=== PATIENT | female | born 1985 | race Caucasian/White ===

== ENCOUNTER 2022-08-28 20:59 | Observation (INO) | payer OTHER, SELFPAY ==
[2022-08-28 20:00] VITALS: BP 158/96; PULSE 77; RESP 18; TEMP 36.8; O2SAT 97; BMI 28.1
[2022-08-28 20:45] VITALS: BMI 28.1
[2022-08-28 20:57] LABS: Microscopic, Urine URINE MICROSCOPIC (MICROSCOPIC)
[2022-08-28 20:58] LABS: Appearance,Urine CLEAR (Clear); Bilirubin,Urine Negative (Negative); Blood, Urine Negative (Negative); Color,Urine YELLOW (Yellow); Glucose,Urine (UA) Negative (Negative); Ketones,Urine Negative (Negative); Leukocyte Esterase,Urine Negative (Negative); Nitrate,Urine Negative (Negative); Protein,Urine TRACE (Negative); Urobilinogen,Urine 0.2 EU/dl (0.2)
[2022-08-28 21:10] LABS: Barbiturates Screen,Urine Negative ng/ml (<200)
[2022-08-28 21:11] LABS: Benzodiazepines Screen,Urine Negative ng/ml (<200)
[2022-08-28 21:12] LABS: Cannabinoid Screen,Urine Negative ng/ml (<50)
[2022-08-28 21:13] LABS: Bacteria,Urine 2+ /lpf; Cocaine Screen,Urine Negative ng/ml (<300); Methadone Screen,Urine Negative ng/ml (<300); WBC,Urine Occasional #/hpf (0-3)
[2022-08-28 21:14] LABS: Opiate Screen,Urine Negative ng/ml (<300)
[2022-08-28 21:15] LABS: Phencyclidine Screen,Urine Negative ng/ml (<25)
[2022-08-28 21:28] LABS: Basophils % 0.2 % (0.1-2.0); Eosinophils # 0.3 K/mm3 (0.0-0.4); Eosinophils % 4.3 % (0.1-12.0); Hematocrit 32.7 % (37.0-47.0); Lymphocytes # 1.5 K/mm3 (0.7-4.5); Lymphocytes % 23.2 % (10-50); Mean Corpuscular HGB Conc 33.7 g/dL (31.8-35.4); Mean Corpuscular Hemoglobin 29.2 pg (27.0-31.2); Mean Corpuscular Volume 86.7 fl (81-99); Mean Platelet Volume 10.5 fl (7.4-10.4); Monocytes # 0.3 K/mm3 (0.1-1.0); Monocytes % 4.6 % (1.7-9.3); Neutrophils # 4.5 K/mm3 (1.8-7.8); Neutrophils % 67.6 % (37.0-80.0); Platelet Count 180 K/mm3 (142-424); Red Blood Count 3.77 M/mm3 (4.20-5.40); Red Cell Distribution Width 13.7 % (11.5-17.5); White Blood Count 6.6 K/mm3 (4.8-10.8)
[2022-08-28 21:34] LABS: Alanine Aminotransferase 18 U/L (12-78); Aspartate Amino Transferase 25 U/L (14-36); Blood Urea Nitrogen 7 mg/dl (7-17); Carbon Dioxide 22 mmol/L (22.0-30.0); Chloride 106 mmol/L (98-107); Creatinine Clearance Estimated 127 mL/min (50-200); Estimated Glomerular Filt Rate 82 ml/min (>60); GFR (African American) 99 ML/MIN (>60); Glucose 101 mg/dl (74-100); Sodium 137 mmol/L (136-145); Uric Acid 7.7 mg/dl (2.5-6.2)
[2022-08-28 21:41] LABS: D-Dimer 0.93 ug/mL (0.0-0.5)
[2022-08-28 21:53] LABS: Amphetamine/Metha Screen,Urine Positive ng/ml (<1000)
[2022-08-28 22:02] LABS: Activated Partial Thrombo Time 24.7 seconds (22.8-30.6); Fibrinogen 479 mg/dL (229.9-363.5); INR 0.85 (0.9-1.1); Prothrombin Time 9.3 seconds (10.1-12.5)
[2022-08-29 07:16] LABS: Basophils % 0.2 % (0.1-2.0); Eosinophils % 0.4 % (0.1-12.0); Hematocrit 32.8 % (37.0-47.0); Hemoglobin 10.9 g/dL (12.2-16.2); Lymphocytes # 0.7 K/mm3 (0.7-4.5); Lymphocytes % 18.4 % (10-50); Mean Corpuscular HGB Conc 33.1 g/dL (31.8-35.4); Mean Corpuscular Hemoglobin 29.6 pg (27.0-31.2); Mean Corpuscular Volume 89.6 fl (81-99); Mean Platelet Volume 11.3 fl (7.4-10.4); Monocytes # 0.1 K/mm3 (0.1-1.0); Monocytes % 2.2 % (1.7-9.3); Neutrophils # 3.2 K/mm3 (1.8-7.8); Neutrophils % 78.8 % (37.0-80.0); Platelet Count 176 K/mm3 (142-424); Red Blood Count 3.66 M/mm3 (4.20-5.40); Red Cell Distribution Width 13.7 % (11.5-17.5)
[2022-08-29 07:22] LABS: Activated Partial Thrombo Time 24.7 seconds (22.8-30.6); Fibrinogen 436 mg/dL (229.9-363.5); INR 0.85 (0.9-1.1); Prothrombin Time 9.3 seconds (10.1-12.5)
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
[2022-08-29 08:37] LABS: D-Dimer 0.92 ug/mL (0.0-0.5)
[2022-08-29 09:27] LABS: Chloride 104 mmol/L (98-107); Sodium 135 mmol/L (136-145)
[2022-08-29 09:28] LABS: Potassium 3.4 mmoL/L (3.5-5.1)
[2022-08-29 09:30] LABS: Alanine Aminotransferase 19 U/L (12-78); Aspartate Amino Transferase 23 U/L (14-36); Blood Urea Nitrogen 8 mg/dl (7-17); Creatinine Clearance Estimated 145 mL/min (50-200); Estimated Glomerular Filt Rate 95 ml/min (>60); GFR (African American) 115 ML/MIN (>60)
[2022-08-29 09:31] LABS: Anion Gap 11.4 mEq/L (5-15); Calcium 8.3 mg/dl (8.4-10.2); Carbon Dioxide 23 mmol/L (22.0-30.0); Glucose 142 mg/dl (74-100)
[2022-08-29 09:51] LABS: Uric Acid 6.5 mg/dl (2.5-6.2)
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
--- NOTE | 2022-08-29 13:00 | SW/DCPLANNER ---
I did call and speak with OB staff ([facility]) regarding if patient should have a referral: no referral entered due to patient transferring to [facility].
--- NOTE | 2022-08-29 13:13 | PC.NURSE ---
Home Medications No Known Home Medications 08/29/22 [History Confirmed 08/29/22] Active Medications Betamethasone Acet/Betameth SodPhos (Betamethasone Acet/Phos 6mg/Ml 5ml Mdv) 12 mg IM ONCE CINTHYA Stop: 09/28/22 22:29 Last Admin: 08/28/2022 23:04 Dose: 12mg Labetalol HCl (Labetalol 100mg Tablet) 200 mg PO BID CINTHYA Stop: 09/27/22 22:29 Last Admin: 08/29/22 10:55 Dose: 200 mg
[2022-08-30 05:57] LABS: Hepatitis B Surface Antigen Negative (Negative)
[2022-08-30 08:19] LABS: HIV Screen 4th Generation wRfx Non Reactive (Non Reactive)
[2022-08-30 12:00] LABS: Rapid Plasma Reagin Ab Titer Non Reactive (NonRea<1:1)
== END 2022-08-29 14:30 | disposition short-term general hospital (02) ==
LOC: OBOUT 21:00 → OB 21:00
PROVIDERS: Admitting Provider Nurse Practitioner Obstetrics & Gynecology; Visit Provider Nurse Practitioner Obstetrics & Gynecology
DX: O9A.312 Physical abuse complicating pregnancy, second trimester (principal); O41.00X0 Oligohydramnios, unspecified trimester, not applicable or unspecified; M32.9 Systemic lupus erythematosus, unspecified; O36.5990 Maternal care for other known or suspected poor fetal growth, unspecified trimester, not applicable or unspecified; Q05.7 Lumbar spina bifida without hydrocephalus; Y09 Assault by unspecified means; Z3A.27 27 weeks gestation of pregnancy; Y07.030 Male partner, current, perpetrator of maltreatment and neglect
CPT/HCPCS: 36415; 59025; 76811; 76819; 76820; 80048; 80305; 81001; 84450; 84460; 84550; 85025; 85378; 85384; 85610; 85730; 86593; 86762; 86850; 87086; 87340; 96360; G0378

== ENCOUNTER 2024-03-14 05:10 | Emergency (ER) | payer OTHER, SELFPAY ==
[2024-03-14] VITALS (8 sets, daily range): BP systolic 118–152; BP diastolic 70–93; PULSE 94–107; RESP 20–22; TEMP 36.7–36.9; O2SAT 96–100; BMI 37.2
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
--- NOTE | 2024-03-14 04:59 | CT_ITS ---
PROCEDURE INFORMATION: Exam: CT Cervical Spine Without Contrast Exam date and time: 03/14/2024 5:25 AM Age: 38 years old Clinical indication: Injury or trauma; Additional info: Trauma, critical injury suspected TECHNIQUE: Imaging protocol: Computed tomography of the cervical spine without contrast. Radiation optimization: All CT scans at this facility use at least one of these dose optimization techniques: automated exposure control; mA and/or kV adjustment per patient size (includes targeted exams where dose is matched to clinical indication); or iterative reconstruction. COMPARISON: CT HEAD/BRAIN WO CON 03/14/2024 5:25 AM FINDINGS: Limitations: Patient motion artifacts degrade multiple images of this examination. These artifacts can cause image blurring and limit interpretation. Bones: Cervical spine is visualized from occiput to T1. Reversal of cervical spine lordotic curvature may be positional, secondary to motion, or due to pain/muscle spasm. No acute fracture as visualized. Normal alignment. Vertebral body and disc heights well preserved. No spinal stenosis or neuroforaminal stenosis visualized. Prevertebral and retropharyngeal spaces: No prevertebral edema. Trachea: Airway unremarkable. Lungs: Upper lungs unremarkable. Pleural spaces: No apical pneumothorax. Vasculature: Cervical vasculature unremarkable. Soft tissues: Neck soft tissues unremarkable. IMPRESSION: No acute cervical spine fracture visualized.
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
[2024-03-14] MEDS: ACETAMINOPHEN 500MG TAB 1000 MG PO (05:22)
[2024-03-14] MEDS: LACTATED RINGERS 1000ML 1,000 ML 999 ML IV (05:22)
[2024-03-14 05:23] LABS: Basophils % 0.4 % (0.1-2.0); Eosinophils # 0.2 K/mm3 (0.0-0.4); Eosinophils % 3.9 % (0.1-12.0); Hematocrit 28.2 % (37.0-47.0); Hemoglobin 9.2 g/dL (12.2-16.2); Lymphocytes # 1.2 K/mm3 (0.7-4.5); Lymphocytes % 22.9 % (10-50); Mean Corpuscular HGB Conc 32.6 g/dL (31.8-35.4); Mean Corpuscular Hemoglobin 28.4 pg (27.0-31.2); Mean Platelet Volume 12.5 fl (7.4-10.4); Monocytes # 0.4 K/mm3 (0.1-1.0); Monocytes % 6.9 % (1.7-9.3); Neutrophils # 3.4 K/mm3 (1.8-7.8); Neutrophils % 64.6 % (37.0-80.0); Platelet Count 196 K/mm3 (142-424); Red Blood Count 3.24 M/mm3 (4.20-5.40); Red Cell Distribution Width 14.3 % (11.5-17.5); White Blood Count 5.2 K/mm3 (4.8-10.8)
[2024-03-14 05:27] LABS: Albumin Level 3.1 g/dl (3.5-5.0); Chloride 108 mmol/L (98-107); Sodium 140 mmol/L (136-145)
[2024-03-14 05:28] LABS: Potassium 3.4 mmoL/L (3.5-5.1)
[2024-03-14 05:30] LABS: Alanine Aminotransferase 10 U/L (12-78); Albumin/Globulin Ratio 0.8 (1.1-1.8); Alkaline Phosphatase 116 U/L (38-126); Anion Gap 11.4 mEq/L (5-15); Aspartate Amino Transferase 21 U/L (14-36); Bilirubin,Total 0.2 mg/dl (0.2-1.3); Blood Urea Nitrogen 3 mg/dl (7-17); Calcium 8.5 mg/dl (8.4-10.2); Carbon Dioxide 24 mmol/L (22.0-30.0); Creatinine Clearance Estimated 189 mL/min (50-200); Estimated Glomerular Filt Rate 95 ml/min (>60); GFR (African American) 115 ML/MIN (>60); Globulin 3.7 g/dL (1.3-3.2); Glucose 95 mg/dl (74-100); Total Protein,Serum 6.8 g/dl (6.3-8.2)
[2024-03-14 05:33] LABS: Activated Partial Thrombo Time 25.7 seconds (22.8-30.6); INR 0.89 (0.9-1.1); Prothrombin Time 10.1 seconds (10.1-12.5)
[2024-03-14 05:42] LABS: Ethyl Alcohol 181 mg/dl (0-10)
[2024-03-14] MEDS: IOPAMIDOL-370 (76%);100ML BOTTLE 160 ML IV (05:54)
[2024-03-14] MEDS: SODIUM CHLORIDE 0.9% 10ML SYR (RAD ONLY) 10 ML IV (05:54)
[2024-03-14] MEDS: 0.9 % SODIUM CHLORIDE 50 ML VIAL 100 ML IV (05:54)
--- NOTE | 2024-03-14 06:44 | PC.NURSE ---
UA SENT S/P IN AND OUT CATH, PROVIDER AWARE.
[2024-03-14 06:45] LABS: Microscopic, Urine URINE MICROSCOPIC (MICROSCOPIC)
[2024-03-14 06:58] LABS: Appearance,Urine CLEAR (Clear); Bilirubin,Urine Negative (Negative); Blood, Urine Negative (Negative); Color,Urine YELLOW (Yellow); Glucose,Urine (UA) Negative (Negative); Ketones,Urine Negative (Negative); Leukocyte Esterase,Urine Negative (Negative); Nitrate,Urine Negative (Negative); PH,Urine 7.5 (5.0-8.5); Protein,Urine Negative (Negative); Specific Gravity, Urine <= 1.005 (1.005-1.030); Urobilinogen,Urine 0.2 EU/dl (0.2)
--- NOTE | 2024-03-14 07:10 | PC.NURSE ---
pt speaking to Mother on phone; [employer] at BS
--- NOTE | 2024-03-14 07:10 | PC.NURSE ---
[facility] 133
[2024-03-14 07:14] LABS: Amphetamine/Metha Screen,Urine Negative ng/ml (<1000)
[2024-03-14 07:15] LABS: Barbiturates Screen,Urine Negative ng/ml (<200); Benzodiazepines Screen,Urine Negative ng/ml (<200)
[2024-03-14 07:16] LABS: Cannabinoid Screen,Urine Negative ng/ml (<50)
[2024-03-14 07:17] LABS: Cocaine Screen,Urine Negative ng/ml (<300); Methadone Screen,Urine Negative ng/ml (<300)
[2024-03-14 07:18] LABS: Phencyclidine Screen,Urine Negative ng/ml (<25)
[2024-03-14 07:19] LABS: Opiate Screen,Urine Negative ng/ml (<300)
--- NOTE | 2024-03-14 08:02 | PC.NURSE ---
pt assisted to restroom via WC with Frankie Bledsoe RN
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
== END 2024-03-14 08:00 | disposition admitted as inpatient to this hospital (09) ==
PROVIDERS: Emergency Medicine; Emergency Provider Student in an Organized Health Care Education/Training Program
DX: Z34.90 Encounter for supervision of normal pregnancy, unspecified, unspecified trimester (principal); F10.929 Alcohol use, unspecified with intoxication, unspecified; R07.82 Intercostal pain; R07.9 Chest pain, unspecified; R10.9 Unspecified abdominal pain; V89.0XXA Person injured in unspecified motor-vehicle accident, nontraffic, initial encounter; Y93.89 Activity, other specified; Y92.488 Other paved roadways as the place of occurrence of the external cause; Z3A.28 28 weeks gestation of pregnancy; Y90.6 Blood alcohol level of 120-199 mg/100 ml
CPT/HCPCS: 70450; 70496; 70498; 71275; 72125; 72128; 72131; 74174; 80053; 80307; 80320; 81001; 85025; 85610; 85730; 86850; 96360; 99291; G0480; J7120; Q9967

== ENCOUNTER 2024-03-14 07:58 | Outpatient (CLI) | payer OTHER, SELFPAY ==
--- NOTE | 2024-03-14 08:02 | PC.NURSE ---
Pt arrived from the ER per wheelchair, accompanied by a [employer] armed security officer. Smita Grant
--- NOTE | 2024-03-14 09:05 | PC.NURSE ---
[employer] disability liaison officer [address] came out and asked how to get out of the department as he was leaving, officer questioned by this RN if this pt was under arrest as an officer would have to remain with her. Officer responded a [employer] worker was supposed to return to sit with the pt and he has been with her for 1 1/2 hrs and was only supposed to sit long enough for the [employer] officer to return to his cruiser to grab paperwork, officer Smita Grant reports she is not in his custody or his problem, as he has gave [employer] plenty of time to get what they needed . This RN verified that if no officer was at the bedside that if staff received a D/C order the pt can technically leave or sign out AMA. Officer Smita Grant v/u
[2024-03-14 09:07] VITALS: BMI 33.8
[2024-03-14 09:48] VITALS: BP 158/92; PULSE 98; RESP 20; TEMP 36.7; O2SAT 99; BMI 33.8
--- NOTE | 2024-03-14 10:15 | PC.NURSE ---
[employer] officer arrived to the department with a warrant for a blood alcohol draw. Lab and Anil Luo RNtype photography supervisor notified at this time. This RN asked the [facility] officer if the pt was under arrest and he stated yes she will be as she has an outstanding warrant officer notified that an officer has to remain posted at the bedside if she is going to be arrested that if the physician gives a D/C order or the pt signs out AMA we cannot stop her, [facility] officer then asked if staff could call dispatch and let them know when she is close to d/c and this RN told him no we can't legally do that, if they want her arrested they have to remain with the pt at all times. [facility] officer reports he is getting another officer here to sit with the pt.
--- NOTE | 2024-03-14 10:58 | PC.NURSE ---
Pt wheeled off the unit per [facility] staff and [facility] officer Haleigh Sigala to [facility] cruiser.
== END 2024-03-14 10:58 | disposition home or self-care (01) ==
LOC: OBOUT 08:00 → OB 08:01
PROVIDERS: Visit Provider Obstetrics & Gynecology
DX: O99.313 Alcohol use complicating pregnancy, third trimester (principal); F10.90 Alcohol use, unspecified, uncomplicated; Y90.6 Blood alcohol level of 120-199 mg/100 ml; Z3A.31 31 weeks gestation of pregnancy
CPT/HCPCS: G0463